=== PATIENT | female | born 1995 | race Caucasian/White ===

== ENCOUNTER 2017-07-26 18:36 | Emergency (ER) | payer MEDICAID ==
[2017-07-26] MEDS ORDERED: Sodium Chloride 0.9% 1,000 ML IV STA ×2 (19:07→21:58)
[2017-07-26] MEDS ORDERED: Dexamethasone 10 MG in Sodium Chloride 0.9% 50 ML IVPB STA (19:08)
[2017-07-26] MEDS ORDERED: cefTRIAXone (Rocephin) 1 gm Inj ONE (19:19)
--- NOTE | 2017-07-26 19:19 | ED PDOC ---
HPI: CCC, URI, Sore Throat Time Seen by Provider: 07/26/17 18:56 Chief Complaint (Nursing): ENT Problem Chief Complaint (Provider): Sore Throat History Per: Patient History/Exam Limitations: no limitations Onset/Duration Of Symptoms: Days (2 days ago) Current Symptoms Are (Timing): Still Present Additional Complaint(s): 21 yo female with a history of hypothyroidism, synthroid, presents to the ED complaining of sore throat and difficulty swallowing, onset of 2 days ago. Patient denies any fever or shortness of breath, and she is able to tolerate liquids. PCP: Leticia Seth Past Medical History Reviewed: Historical Data, Nursing Documentation, Vital Signs Vital Signs: Last Vital Signs Temp 100.1 F H 07/26/17 20:56 Pulse 123 H 07/26/17 20:56 Resp 18 07/26/17 20:56 BP 121/67 07/26/17 20:56 Pulse Ox 100 07/26/17 20:56 - Medical History PMH: Hypothyroidism - Surgical History Surgical History: No Surg Hx - Family History Family History: States: Unknown Family Hx - Social History Current smoker - smoking cessation education provided: No Ex-Smoker (has not smoked in the last 12 months): No Alcohol: None Drugs: Denies - Home Medications Home Medications: Ambulatory Orders Medication Instructions Recorded Amoxicillin/Clavulanate [Augmentin 1 tab PO BID #20 tab 07/26/17 875 MG-125 MG] predniSONE [predniSONE Tab] 10 mg PO TID #15 tab 07/26/17 - Allergies Allergies/Adverse Reactions: Allergies Allergy/AdvReac Type Severity Reaction Status Date / Time No Known Allergies Allergy Verified 07/26/17 18:49 Review of Systems ROS Statement: Except As Marked, All Systems Reviewed And Found Negative ENT: Positive for: Throat Pain, Other (difficulty swallowing) Physical Exam - Reviewed Nursing Documentation Reviewed: Yes Vital Signs Reviewed: Yes - Physical Exam Appears: Positive for: Non-toxic, No Acute Distress Head Exam: Positive for: ATRAUMATIC Skin: Positive for: Normal Color, Warm, DRY Eye Exam: Positive for: EOMI, Normal appearance, PERRL ENT: Positive for: Tonsillar Exudate, Tonsillar Swelling (enlarged and touching) , Other (no deviation no abscess) Neck: Positive for: Normal, Painless ROM, Supple Cardiovascular/Chest: Positive for: Regular Rate, Rhythm, Tachycardia (140) Respiratory: Positive for: Normal Breath Sounds. Negative for: Respiratory Distress Gastrointestinal/Abdominal: Positive for: Normal Exam, Soft. Negative for: Tenderness Extremity: Positive for: Normal ROM. Negative for: Pedal Edema, Deformity Neurologic/Psych: Positive for: Alert, Oriented. Negative for: Motor/Sensory Deficits - Laboratory Results Result Diagrams: 07/26/17 19:27 07/26/17 19:27 - ECG O2 Sat by Pulse Oximetry: 98 (RA) Pulse Ox Interpretation: Normal Medical Decision Making Medical Decision Making: Time: --19:06 Impression: --rule out Tonsillitis Plan: --VBG --ECG --Labs --T4 stat --Thryoid stimulating hormone --ED urine Dip --Ed urine preg -Dexamethasone 10mg IVP --IV fluids --Rocephin --IVPB --Blood Culture --Rapid Strep Group Reassess -- Pt feels better tolerating PO. HR 105 after hydration. Advised to return if swelling in throat gets worse or difficulty swallowing worsens or SOB. Scribe Attestation: Documented by Guzman Leonard acting as a scribe for Janak Hewitt MD. Provider Attestation: All medical record entries made by the Scribe were at my direction and personally dictated by me. I have reviewed the chart and agree that the record accurately reflects my personal performance of the history, physical exam, medical decision making, and the department course for this patient. I have also personally directed, reviewed, and agree with the discharge instructions and disposition. Disposition - Clinical Impression Clinical Impression: Tonsillitis - Patient ED Disposition Is Patient to be Admitted: No Counseled Patient/Family Regarding: Studies Performed, Diagnosis, Need For Followup, Rx Given - Disposition Referrals: [facility] [Outside] Disposition: Routine/Home Disposition Time: 23:37 Condition: FAIR Prescriptions: Amoxicillin/Clavulanate [Augmentin 875 MG-125 MG] 1 tab PO BID #20 tab predniSONE [predniSONE Tab] 10 mg PO TID #15 tab Instructions: Sore Throat in Adults Forms: [employer] ([place])
[2017-07-26 19:30] LABS: VENOUS BLOOD GAS BASE EXCESS 0.3 mmol/L (0.0-2.0); VENOUS BLOOD GAS PCO2 38 mmHg (40-60); VENOUS BLOOD GAS PO2 42 mm/Hg (30-55); VENOUS BLOOD PH 7.42 (7.32-7.43)
[2017-07-26 19:32] LABS: BASO # 0.1 K/uL (0.0-0.2); BASO % 0.5 % (0.0-2.0); EOS # 0.1 K/uL (0.0-0.7); EOS % 0.3 % (0.0-4.0); HEMOGLOBIN 12.7 g/dL (12.0-16.0); LYMPH # 2.3 K/uL (1.0-4.3); LYMPH % 13.6 % (20.0-40.0); MEAN CELL VOLUME 84.1 fl (81.0-99.0); MEAN CORPUSCULAR HEMOGLOBIN 27.9 pg (27.0-31.0); MEAN CORPUSCULAR HGB CONC 33.2 g/dL (33.0-37.0); MEAN PLATELET VOLUME 7.9 fl (7.2-11.7); MONO # 1.2 K/uL (0.0-0.8); MONO % 7.1 % (0.0-10.0); NEUT # 13.1 K/uL (1.8-7.0); NEUT % 78.5 % (50.0-75.0); RBC 4.55 Mil/uL (3.80-5.20); RED CELL DISTRIBUTION WIDTH 13.9 % (11.5-14.5); WHITE BLOOD COUNT 16.7 K/uL (4.8-10.8)
[2017-07-26 20:06] LABS: ALB/GLOB RATIO 0.9 (1.0-2.1); ALBUMIN 4.4 g/dL (3.5-5.0); ALT/SGPT 39 U/L (9-52); AST/SGOT 29 U/L (14-36); BLOOD UREA NITROGEN 9 mg/dl (7-17); CALCIUM 9.3 mg/dL (8.4-10.2); GFR AFRICAN-AMERICAN > 60; GFR NON-AFRICAN AMERICAN > 60
[2017-07-26 20:23] LABS: T4 12.7 ug/dl (5.5-11.0)
[2017-07-26 21:01] VITALS: BP 121/67
[2017-07-26 23:59] VITALS: PULSE 112; RESP 19; TEMP 98.3; O2SAT 100
--- NOTE | 2017-07-27 15:48 | CARD ---
APPROVED REPORT EKG Measurement Heart [id number] <Conclusion> Sinus tachycardia Minimal voltage criteria for LVH, may be normal variant Borderline ECG
== END 2017-07-27 | disposition home or self-care (01) ==
LOC: H.ER 18:36
DX: J03.90 Acute tonsillitis, unspecified (principal); E03.9 Hypothyroidism, unspecified; R13.10 Dysphagia, unspecified
CPT/HCPCS: 80053; 81025; 82803; 84436; 84443; 85025; 87040; 87070; 87430; 93005; 96361; 96365; 96375; 99284; J0696; J1100; J7040